=== PATIENT | female | born 1945 | race Caucasian/White ===

== ENCOUNTER 2016-08-02 15:07 | Outpatient (CLI) | payer OTHER ==
[~2016-08-02 15:07] MED LIST: ATENOLOL50 MG PO; BACLOFEN10 MG PO; CELEBREX200 MG; COMPAZINE5 MG; FLOVENT HFA110 MCG IN; FLUOXETINE HCL20 MG PO; LEVAQUIN500 MG PO; METFORMIN HCL500 MG PO; MORPHINE SULFAT15 M2 PO; MS CONTIN15 MG PO; NEURONTIN300 MG PO; OXYCODONE HCL5 MG PO; PAXIL10 MG PO; PERCOCET EQUIVALENT PO; PROAIR HFA IN; WELLBUTRIN SR100 MG PO; ZESTRIL10 MG PO; ZOVIRAX200 MG PO
--- NOTE | 2016-08-02 15:40 | DIAGNOSTIC IMAGING REPORT ---
PROCEDURE: XR CHEST 2 VIEW INDICATION: PRE OP TECHNIQUE: PA and lateral views. COMPARISON: None. FINDINGS: Lungs are clear. Heart and mediastinum are normal. Thorax is normal. IMPRESSION: 1. Negative chest.
[2016-08-09] MEDS ORDERED: NEURONTIN300 MG PO ×2 (15:14)
[2016-08-09] MEDS ORDERED: CELEBREX200 MG PO ×2 (15:16)
== END 2016-08-02 23:00 ==
LOC: RT SRH 15:07
DX: Z01.810 Encounter for preprocedural cardiovascular examination (principal); Z01.811 Encounter for preprocedural respiratory examination; Z01.812 Encounter for preprocedural laboratory examination
CPT/HCPCS: 90004; 90074; 90100; 90148; 90469

== ENCOUNTER 2016-08-14 09:08 | Day surgery (SDC) | payer OTHER ==
--- NOTE | 2016-08-03 07:04 | HISTORY AND PHYSICAL ---
ADMITTED: 08/14/2016 CHIEF COMPLAINT: 1. Mass, left thumb HISTORY OF PRESENT ILLNESS: The patient has had a lump on her left thumb. 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 MEDICAL/SURGICAL HISTORY: Her past history is positive in that she suffers from stress incontinence. She has had some degenerative changes involving multiple joints, including the sacroiliac joints, both shoulders and knees. She had a previous left knee replacement. She suffers from sciatica. She also has diabetes, and she has an anxiety disorder. She has some stress incontinence. Surgical history: Positive in that she has had a bladder sling suspension procedure. She has had previous L5-S1 laminectomy. She has had a neck fusion. She has also had carpal tunnel release surgery, appendectomy , hysterectomy and had a previous spine surgery before the most recent laminectomy ; it does not state exactly what that was. It was back in 2013, and then again she has had a left knee replacement. MEDICATIONS: 1. Natural Tears formulation, which she puts in both eyes daily. 2. She takes morphine as needed for pain. 3. She takes prochlorperazine 10 mg daily. 4. Fluoxetine 40 mg daily. 5. Metformin 500 mg once daily. 6. Albuterol inhaler as needed for shortness of breath. 7. Gabapentin she takes 300 mg, 1-4 capsules at bedtime only. 8. Celebrex 200 mg daily. 9. Buspirone 5 mg twice a day. ALLERGIES: 1. SHE IS NOT ALLERGIC TO ANY MEDICATIONS. SOCIAL HISTORY: Negative for tobacco use, and positive in that she does drink some alcohol, she says on a monthly basis only. FAMILY HISTORY: Her family history is negative for any familial illnesses. REVIEW OF SYSTEMS: Aside from problems with her left shoulder and thumb and back are negative. She denies any loss of consciousness, seizure disorder, chest pain, shortness of breath, cough, congestion, fever, chills, nausea, vomiting, diarrhea or dysuria. PHYSICAL EXAMINATION: VITAL SIGNS: Shows height 63 inches, weight 174, blood pressure 148/80, pulse is 60. HEENT: Head is normocephalic and atraumatic. Her eyes are clear. Her hearing is grossly normal. The teeth are in fair repair. She is missing a number of her teeth, upper and lower. She has a face which is symmetrical. NECK: No jugular venous distention. HEART: Regular rate and rhythm. There is a grade 1-2/6 systolic ejection murmur heard best at the right second intercostal space. LUNGS: Clear to auscultation. ABDOMEN: Soft and mildly obese. EXTREMITIES: In the left thumb, I will refer you to my previous clinic notes, but she does have a soft mass over the dorsum of the left thumb, and there are no overlying skin changes, and she is able to flex and extend the IP joint of the thumb without difficulty and with minimal discomfort. IMPRESSION: 1. Mass of the left thumb PLAN: The plan will be for removal of the same. I explained how we go about doing the procedure, the risk of infection, of recurrence, of continued pain at the thumb. She understands and accepts and would like to proceed with the procedure. We will proceed with the surgery, and it is scheduled for 08/14/2016.
[~2016-08-14 09:08] MED LIST changes: +CELEBREX200 MG PO
--- NOTE | 2016-08-14 12:43 | Provider's Discharge Care Plan ---
Problem, Goal, Plan Problem List 1. Cyst in hand
--- NOTE | 2016-08-14 12:43 | Provider's Discharge Care Plan ---
Problem, Goal, Plan Problem List 1. Cyst in hand
[2016-08-14] MEDS ORDERED: NORCO1 TA1 PO ×2 (12:44)
[2016-08-14] MEDS ORDERED: PRAVASTATIN SOD10 MG PO ×2 (12:45)
--- NOTE | 2016-08-14 14:22 | OPERATIVE REPORT ---
DATE OF SURGERY: 08/14/2016 SURGEON: GRICEL WALTERS MD PREOPERATIVE DIAGNOSIS: 1. Mass of the dorsal aspect of the left thumb POSTOPERATIVE DIAGNOSIS: 1. Mass of the dorsal aspect of the left thumb PROCEDURE PERFORMED: 1. Operation proposed was removal of the mass on the left thumb, and the operation performed is removal of the mass on the left thumb ESTIMATED BLOOD LOSS: Maybe 2 mL at most. COMPLICATIONS: None. PATHOLOGY SPECIMEN: None. SURGICAL TECHNIQUE: The patient was taken to the operating room. She was given some IV sedation. The arm was prepped and draped in the usual sterile fashion, including the hand and fingers and thumb. We then used a small Rochester drain as a tourniquet at the base of the thumb. I had given her some local anesthetic using about 10 mL of 0.5% Marcaine as a block at the level of the metacarpophalangeal joint. I then went on and made a longitudinal incision directly over the mass, carried down through subcutaneous tissue. It was found to be a small ganglion cyst over the dorsal aspect, attached to the extensor tendon of the thumb, just distal to the IP joint. It was resected sharply without difficulty and removed. Then the Rochester drain was removed, and there were a couple superficial bleeders that were coagulated with the Bovie electrocautery. The skin was closed with 3-0 Vicryl subcuticular interrupted simple sutures, and she was dressed with an Adaptic and some fluffs and 4x4s and wrapped with an Rory bandage loosely applied. She was awakened and was taken to the recovery room. She is in stable condition.
== END 2016-08-14 14:40 | disposition home or self-care (01) ==
LOC: OR SRH 09:08
PROVIDERS: Orthopaedic Surgery
PROC: 0LB80ZZ Excision of Left Hand Tendon, Open Approach (ICD-10-PCS; principal; 2016-08-14 11:30)
DX: M67.442 Ganglion, left hand (principal); E11.9 Type 2 diabetes mellitus without complications; Z79.84 Long term (current) use of oral hypoglycemic drugs
CPT/HCPCS: 29229; 50004; 60001; 83291; 84038

== ENCOUNTER 2016-09-05 13:45 | Emergency (ER) | payer OTHER ==
[~2016-09-05 13:45] MED LIST changes: +NORCO1 TA1 PO; +PRAVASTATIN SOD10 MG PO
--- NOTE | 2016-09-05 15:32 | DIAGNOSTIC IMAGING REPORT ---
PROCEDURE: XR CHEST 2 VIEW INDICATION: COUGH TECHNIQUE: PA and lateral views. COMPARISON: None. FINDINGS: Lungs are clear. Heart and mediastinum are normal. Thorax is normal. IMPRESSION: 1. Negative chest.
--- NOTE | 2016-09-05 15:44 | ED ORDER SUMMARY ---
..... Patient: NAIF TOPETE OrderSheet [facility] VisitID: [id number] [place] [address] 71y, F Registration Date/Time: 09/05/2016 ORDER SHEET Weight: 65.7 kg (stated) Allergies: No Known Drug Allergy GENERAL ORDERS: Rapid Influenza Screen (Nasal Pharyngeal) (swab) Urgent (14:03 09/05/2016 Maggy NAVARRO) (Ack 14:04 ARCADIOoeranayeli) (14:18 ASchmuck) CBC w Diff Urgent (14:03 09/05/2016 Maggy NAVARRO) (Ack 14:04 ARCADIOoeisamar) (14:18 ASchmuck) CMP Urgent (14:03 09/05/2016 Maggy NAVARRO) (Ack 14:04 ARCADIOoeisamar) (14:18 ASchmuck) UA-Culture if indicated Urgent (14:03 09/05/2016 Maggy NAVARRO) (Ack 14:04 ARCADIOoeisamar) (15:40 EHassan R.N.) Chest 2V Urgent (14:38 09/05/2016 Maggy NAVARRO) (Ack 14:41 ARCADIOoerner) (15:03 KHoerner) MEDICATION ORDERS: IV FLUIDS: IV NS : initial bolus 1000 mL (1000 mL/hr), then none - (NOW) (14:02 09/05/2016 Maggy NAVARRO) (14:07 ASchmuck) Morphine IV 10 mg (HIGH ALERT MEDICATION, NOW) (14:02 09/05/2016 Maggy NAVARRO) (14:07 ASchmuck) Zofran IV 8 mg (NOW) (14:02 09/05/2016 Maggy NAVARRO) (14:20 EHassan R.N.) ORDER SHEET NOTES: [Electronically signed by June Cornejo R.N. (23:52 09/05/2016)] [Electronically signed by Zara Morley MD (10:08 09/07/2016)] [Electronically locked/signed by June Cornejo R.N. (23:52 09/05/2016)]
--- NOTE | 2016-09-05 15:44 | ED CLINICAL REPORT ---
Clinical Report - Physicians/Mid Levels [facility] [address] [place] [address] 09/05/2016 13:45 Patient: NAIF TOPETE Time Seen: 1344. Arrived- By ambulance. Historian- patient and EMS personnel. HISTORY OF PRESENT ILLNESS Chief Complaint: VOMITING. This started about 3 days ago and is still present. No recent travel. She has had nausea, vomiting and a change in diabetic routine (Pt has not been able to hold down her metformin.). No diarrhea, black stools, bloody stools, abdominal pain or constipation. No flank pain, history of possible bad food exposure or known contact with a sick individual. Has not recently been camping or on antibiotics. The illness is described as moderate. (Pt states she has been shaking uncontrollably since after she started vomiting. She denies fever at home. Pt states that the illness started with a runny nose and cough a couple of days before the vomiting.). Similar symptoms previously: None. Recent medical care: The patient was seen recently at another facility in a clinic. ( PT was seen by Ne Traore at Dr. Moore's office, and sent over from there.). REVIEW OF SYSTEMS No fever, muscle aches, difficulty with urination, dark urine or headache. No dizziness, sore throat, cough, chest pain or difficulty breathing. No excessive urination, skin rash, jaundice, fainting episodes or blurred vision. The patient has had back pain. All systems otherwise negative, except as recorded above. PAST HISTORY Problems: Diabetes Mellitus Type 2. COPD - Chronic Obstructive Pulmonary Disease. Sacroiliitis. Arthritis. Anxiety Reaction. Back Pain. Additional Surgeries: Appendectomy. Back Surgery. Bladder Suspension. Hysterectomy. Knee Prosthesis. Medications: Gabapentin Oral 300 mg, daily. BusPIRone HCl Oral 5 mg, daily. CeleBREX Oral 200 mg, daily. FLUoxetine HCl Oral 40 mg, daily. Prochlorper 10 mg (for nausea). MetFORMIN HCl Oral 500 mg, daily. Ventolin HFA Inhalation. Morphine Sulfate ER Oral 15 mg, as needed. SOCIAL HISTORY Never smoker. No alcohol use or drug use. ADDITIONAL NOTES The nursing notes have been reviewed. PHYSICAL EXAM Vital Signs: 09/05/2016 13:57 BP: 148/106. HR: 88. RR: 18. O2 saturation: 100%. Temp: 98.6 F. Pain level now: 04/16. Appearance: Alert. Oriented X3. Patient in mild distress. Distress appears due to anxiety. (Pt has notable rigors, and is irritable.). Eyes: Pupils equal, round and reactive to light. Eyes normal inspection. ENT: Nose normal. Neck: Normal inspection. CVS: Normal heart rate and rhythm. Heart sounds normal. Pulses normal. Respiratory: No respiratory distress. Breath sounds normal. Abdomen: Soft and nontender. Back: Normal inspection. No CVA tenderness. Skin: Skin warm and dry. Normal skin color. No rash. Normal skin turgor. Extremities: Extremities exhibit normal ROM. No lower extremity edema. Neuro: Oriented X 3. No motor deficit. No sensory deficit. LABS, X-RAYS, AND EKG Laboratory Tests: CBC w Diff: (BEBETO: 09/05/2016 13:56) ( MsgRcvd 09/05/2016 14:41) Final results Test Result Flag Units (Reference) WHITE BLOOD COUNT 10.8 K/uL (4.5-11.5) RED BLOOD COUNT 5.82 H M/uL (4.00-5.20) HEMOGLOBIN 16.9 H gm/dL (12.0-16.0) HEMATOCRIT 50.9 H % (36.0-46.0) MEAN CELL VOLUME 87 fL (80-100) MEAN CORPUSCULAR HGB 29 pg (26-34) MEAN CORPUSCULAR HGB CONC 33 g/dL (31-37) RED CELL DISTRIBUTION WIDTH 16.2 H % (11.6-14.8) PLATELET COUNT 200 K/uL (150-400) NEUTROPHIL % 78.2 H % (50-75) LYMPH % 12.8 L % (25-40) MONO % 8.6 % (3-14) EOSINOPHIL % 0.1 % (0-4) BASOPHIL % 0.3 % (0-2) CMP: (BEBETO: 09/05/2016 13:56) ( MsgRcvd 09/05/2016 14:51) Final results Test Result Flag Units (Reference) GLUCOSE 108 mg/dL (70-110) BUN 14 mg/dL (7-18) CREATININE 1.1 mg/dL (0.6-1.3) Estimated GFR 52.19 mL/min Estimated GFR- >60 mL/min Note: Persistent reduction over 3 months in eGFR<60 mL/min/1.73 m2 defines CKD. Patients with eGFR values>=60 mL/min/1.73 m2 may also have CKD if evidence ofpersistent proteinuria. Additional information may be foundat www.[email or web address].org. SODIUM 140 mmol/L (136-145) POTASSIUM 4.1 mmol/L (3.5-5.1) CHLORIDE 102 mmol/L (98-107) CARBON DIOXIDE 26 mmol/L (21-32) CALCIUM 10.2 H mg/dL (8.5-10.1) TOTAL PROTEIN 8.8 H g/dL (6.4-8.2) ALBUMIN 4.1 g/dL (3.3-5.0) BILIRUBIN, TOTAL 0.8 mg/dL (0.0-1.0) ALKALINE PHOSPHATASE 79 U/L (46-116) AST (SGOT) 29 U/L (15-37) ALT (SGPT) 39 U/L (12-78) Rapid Influenza Screen: (BEBETO: 09/05/2016 14:14) ( MsgRcvd 09/05/2016 14:37) Final results SPECIMEN DESCRIPTION: SWAB Test Result Flag Units (Reference) RAPID INFLUENZA SCREEN DATE: 09/05/16 INFLUENZA A: NEGATIVE SCREEN FOR INFLUENZA A INFLUENZA B: NEGATIVE SCREEN FOR INFLUENZA B . Pulse Oximetry: 09/05/2016 13:57 O2 saturation: 100%. (FIO2 - room air). Interpretation: normal. PROGRESS AND PROCEDURES Course of Care: Pt appeared uncomfortable, but was hemodynamically stable. I did suspect opiate withdrawal, given that pt has not been able to hold any of her meds down for the past 3 days, and is on chronic oral morphine. Pt was worked up and given IV morphine, which resolved her sx completely. She was also given IV fluids and Zofran. Work-up was negative. No emergent condition identified. Patient counseled in person regarding the patient's stable condition, test results, diagnosis and need for follow-up. Concerns were addressed. Old medical records reviewed. Disposition: Discharged. Condition: stable and improved. CLINICAL IMPRESSION Acute viral syndrome Narcotic withdrawal INSTRUCTIONS Drink plenty of fluids. (Your labs look good, and no serious infection has been found. 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 You have been given a dose of morphine today to stop this reaction. Please get back on all of your medications today, and take Zofran for any further nausea.). Warnings: SEDATIVE MEDICATION: You were given sedative medication during your visit. Do not drive or operate dangerous machinery for 6 hours. GENERAL WARNINGS: Return or contact your physician immediately if your condition worsens or changes unexpectedly, if not improving as expected, or if other problems arise. Your Current Medications: CONTINUE TAKING THE FOLLOWING MEDICATIONS: BusPIRone HCl Oral : 5 mg daily. CeleBREX Oral : 200 mg daily. FLUoxetine HCl Oral : 40 mg daily. Gabapentin Oral : 300 mg daily. MetFORMIN HCl Oral : 500 mg daily. Morphine Sulfate ER Oral : 15 mg, prn. Prochlorper* : 10 mg, for nausea. Ventolin HFA Inhalation. Prescription Medications: Zofran (orally disintegrating tablets) 4 mg: take 1-2 orally every 6 hours as needed for nausea. Dispense fifteen (15). No refill. Substitution is permissible. Follow-up: Follow up with your doctor in five days if not better. Understanding of the discharge instructions verbalized by patient. (Electronically signed by Zara Morley MD 09/07/2016 10:08)
--- NOTE | 2016-09-05 15:44 | ED NURSING NOTES ---
Clinical Report - Nurses [facility] [address] [place] [address] 09/05/2016 13:45 Patient: NAIF TOPETE TRIAGE Triage time 1358 PM. Acuity: LEVEL 3. Chief Complaint: ABDOMINAL PAIN, NAUSEA, VOMITING and DIARRHEA and FEVER, CHILLS and ACHES. Alert. No acute distress. SEPSIS SCREEN: Sepsis Screen. Negative (no infection suspected/documented). ASAEL COMA SCORE: Asael Coma Scale: 15- eyes open spontaneously (4); best verbal response- oriented x 4 (5); best motor response- obeys commands (6). --14:36 June Cornejo R.N. 13:57 09/05/16. BP: 148/106. HR: 88. RR: 18. O2 saturation: 100% on room air. Temp: 98.6 F (oral). Pain level now: 04/16. --14:36 June Cornejo R.N. Weight: 65.7 kg stated. Height/Length: 62 inches Per Patient. BMI: 26.5. --14:01 June Cornejo R.N. Medications Morphine Sulfate ER Oral 15 mg, as needed. --14:26 June Cornejo R.N. Ventolin HFA Inhalation. --14:26 June Cornejo R.N. MetFORMIN HCl Oral 500 mg, daily. --14:27 June Cornejo R.N. Prochlorper 10 mg (for nausea). --14:29 June Cornejo R.N. FLUoxetine HCl Oral 40 mg, daily. --14:30 June Cornejo R.N. CeleBREX Oral 200 mg, daily. --14:31 June Cornejo R.N. BusPIRone HCl Oral 5 mg, daily. --14:31 June Cornejo R.N. Gabapentin Oral 300 mg, daily. --14:32 June Cornejo R.N. Allergies No Known Drug Allergy. --23:52 June Cornejo R.N. Medication/allergy information source: the patient and patient's imported external medical record. --14:36 June Cornejo R.N. History Arrived by EMS. Historian: patient. Primary physician called the ED prior to patient's arrival (Dr. Ne Traore). ( Pt arrived via EMS from Dr. rebollar, pt had gone there due to not feeling well for the past 3 days, with chills, fevers, cold sweats, cough non productive, vomiting and diarrhea.). Onset. (3). She has had fever, nausea, vomiting, diarrhea and abdominal pain. No constipation. Last oral intake by patient was liquid. Treatment BOTTLE CAPPER: None. EMS report reviewed. See report. PAST MEDICAL HX: Immunizations: up-to-date. The patient has had a hysterectomy. 2. Para 2. No contraception. SOCIAL HX: Never smoker. No alcohol use or drug use. No recent travel. No infectious disease exposure. No known contact with a sick individual. ABUSE ASSESSMENT: No report of abuse. SELF HARM ASSESSMENT: A self harm assessment was performed. The patient answered "no" to the question "Do you have thoughts of harming or killing yourself?" and "Have you recently had thoughts about harming or killing others?". FALL RISK ASSESSMENT: Fall risk assessment completed. No fall risk identified. NUTRITIONAL RISK ASSESSMENT: The nutritional risk assessment revealed no deficiencies. FUNCTIONAL ASSESSMENT: Functional assessment: no impairments noted. LEARNING NEEDS ASSESSMENT: The learning needs assessment revealed no barriers. SKIN INTEGRITY ASSESSMENT: Skin integrity risk assessment completed. No skin integrity risk identified. --14:36 June Cornejo R.N. PROBLEMS: Diabetes Mellitus Type 2. COPD - Chronic Obstructive Pulmonary Disease. Sacroiliitis. Arthritis. Anxiety Reaction. Back Pain. --14:12 June Cornejo R.N. ADDITIONAL SURGERIES: Appendectomy. Back Surgery. Bladder Suspension. Hysterectomy. Knee Prosthesis. --14:12 June Cornejo R.N. Interventions ID band on patient. --14:36 June Cornejo R.N. PHYSICAL ASSESSMENT To room via stretcher. GENERAL / NEURO / PSYCH: Alert. Oriented X 4. Appears in no acute distress. Appears in pain, anxious and in distress. HEENT: Mucous membranes are pink. RESPIRATORY: Respirations not labored. CVS: Normal sinus rhythm noted. Cardiac rhythm: normal sinus rhythm. No abnormal heart sounds. Pulses: right radial 4+, left radial 4+, right dorsalis pedis 4+, left dorsalis pedis 4+, right posterior tibial 4+ and left posterior tibial 4+. Capillary refill less than 2 seconds and is greater than 2 seconds. GI / : The patient has diarrhea. No urethral discharge or vaginal discharge. SKIN: Skin is pale. Skin is warm and dry. --14:18 June Cornejo R.N. NURSING PROGRESS NOTES 13:51 09/05/2016 Site #1 started via IV in the right antecubital space with an 20g angiocath, with aseptic technique and good blood return; one attempt. Blood drawn: rainbow set. Labeled in the presence of the patient and sent to the lab. Saline lock flushed with 10 mL saline. --14:06 Asia Meek 13:57 09/05/2016 Started bag #1 1000 mL IV Fluids IV NS (Saline); at 1000 mL/hr over 1 hour(s) via site #1 via IV pump. Allergies verified and confirmed 5 rights. IV patency established. IV site checked: no pain, redness, or swelling. IV flushed thoroughly pre- and post-medication administration. --14:07 Asia Meek 14:04 09/05/2016 Morphine IVP 5 mg given over 30 second(s) via site #1. Allergies verified, confirmed 5 rights and sedative warning given to the patient. IV patency established. IV site checked: no pain, redness, or swelling. IV flushed thoroughly pre- and post-medication administration. IVP given by RN (Verbal order from ERMD to divide doses). --14:07 Asia Meek Cardiac rhythm: normal sinus rhythm. The initial plan of care for this patient has been created This plan of care was discussed with the patient. mophead trimmer and wrapper, pulse oximeter and NIBP monitor placed on patient. Patient gowned. Head of bed elevated 15 degrees. Warming measures: blanket applied. Reassurance given. Reassessment after fluids administered and medication administered. She has had no adverse reaction. GI / : The patient reports nausea. The patient reports abdominal pain. Denies diarrhea or vomiting. Abdominal tenderness in the right lower quadrant, left lower quadrant and lower abdomen. Guarding present. SKIN: Skin is warm and dry. Two patient identifiers checked. Call light placed in reach. Side rails up. Bed placed in lowest position. Brakes of bed on. FALL RISK ASSESSMENT: Fall risk assessment completed. No fall risk identified. --14:20 June Cornejo R.N. 14:15 09/05/16. BP: 156/90. HR: 88. RR: 12 (regular and unlabored). O2 saturation: 96% on room air. Pain level now: 01/14. --14:20 June Cornejo R.N. 14:10 09/05/2016 Zofran (Ondansetron HCl) IVP 8 mg given over 4 minute(s) via site #1. Allergies verified and confirmed 5 rights. IV patency established. IV site checked: no pain, redness, or swelling. IV flushed thoroughly pre- and post-medication administration. IVP given by RN. --14:20 June Cornejo R.N. 14:30 09/05/2016 Morphine IVP Response: no adverse reaction pain is improving. Symptoms have improved. --15:13 June Cornejo R.N. 14:48 09/05/2016 Zofran IVP Response: symptoms have improved the patient feels better. --15:13 June Cornejo R.N. 15:40 09/05/2016 IV Fluids IV NS Discontinued: bag #1 completed. Total amount infused: 1000 mL. IV patency established. IV site checked: no pain, redness, or swelling. IV flushed thoroughly. --15:40 June Cornejo R.N. Pulse oximeter and NIBP monitor placed on patient. Reassurance given. Reassessment after fluids administered. She is calm and resting quietly and has had no adverse reaction. Overall patient status is improved- she states feels better. Call light placed in reach. --16:00 June Cornejo R.N. 15:00 09/05/16. BP: 144/67 (regular adult cuff) taken on the left arm, via an automated monitor, while lying. HR: 86. RR: 14. O2 saturation: 96% on room air. Temp: 98.5 F (oral). Pain level now: 0/10. --16:00 June Cornejo R.N. DISPOSITION / DISCHARGE 16:00 09/05/2016 Site #1 removed upon discharge. Catheter intact. Manual pressure and bandaid applied. --23:49 June Cornejo R.N. late entry - 16:00. Departure time: 1608 PM. Cardiac rhythm: normal sinus rhythm. Condition at departure: improved and stable. The goals identified in the patient's plan of care were met. No learning barriers present. Discharge instructions provided and reviewed with the patient and family. Reviewed medication(s) side effects, precautions, dosing and course information. Prescription(s) given to the patient. Reviewed need for increased fluid intake. Activity restrictions (rest) reviewed. Patient and family verbalized understanding. Written instructions provided in Greenlandic. ( All concerns addressed to pt's satisfaction. Verbalizes understanding of D/C instructions). No treatment instructions or referrals given to the patient. The patient was discharged by the nurse practitioner. She was discharged home and accompanied by family. She left the Emergency Department ambulatory and via private vehicle. Family member driving. FALL RISK ASSESSMENT: Fall risk assessment completed. No fall risk identified. --23:51 June Cornejo R.N. 16:00 09/05/16. BP: 163/93 (regular adult cuff) taken on the left arm, via an automated monitor, while sitting. HR: 96 (regular and normal rate). RR: 16 (regular, unlabored and normal). O2 saturation: 100% on room air. Temp: 98.9 F (oral). Pain level now: 210. --23:51 June Cornejo R.N. Locked/Released at 09/05/2016 23:52 by June Cornejo R.N.
--- NOTE | 2016-09-05 15:44 | ED ORDER SUMMARY ---
..... Patient: NAIF TOPETE OrderSheet [facility] VisitID: [id number] [place] [address] 71y, F Registration Date/Time: 09/05/2016 ORDER SHEET Weight: 65.7 kg (stated) Allergies: No Known Drug Allergy GENERAL ORDERS: Rapid Influenza Screen (Nasal Pharyngeal) (swab) Urgent (14:03 09/05/2016 Maggy NAVARRO) (Ack 14:04 ARCADIOoeranayeli) (14:18 ASchmuck) CBC w Diff Urgent (14:03 09/05/2016 Maggy NAVARRO) (Ack 14:04 ARCADIOoeisamar) (14:18 ASchmuck) CMP Urgent (14:03 09/05/2016 Maggy NAVARRO) (Ack 14:04 ARCADIOoeisamar) (14:18 ASchmuck) UA-Culture if indicated Urgent (14:03 09/05/2016 Maggy NAVARRO) (Ack 14:04 ARCADIOoeisamar) (15:40 EHassan R.N.) Chest 2V Urgent (14:38 09/05/2016 Maggy NAVARRO) (Ack 14:41 ARCADIOoerner) (15:03 KHoerner) MEDICATION ORDERS: IV FLUIDS: IV NS : initial bolus 1000 mL (1000 mL/hr), then none - (NOW) (14:02 09/05/2016 Maggy NAVARRO) (14:07 ASchmuck) Morphine IV 10 mg (HIGH ALERT MEDICATION, NOW) (14:02 09/05/2016 Maggy NAVARRO) (14:07 ASchmuck) Zofran IV 8 mg (NOW) (14:02 09/05/2016 Maggy NAVARRO) (14:20 EHassan R.N.) ORDER SHEET NOTES: [Electronically signed by June Cornejo R.N. (23:52 09/05/2016)] [Electronically signed by Zara Morley MD (10:08 09/07/2016)] [Electronically locked/signed by June Cornejo R.N. (23:52 09/05/2016)]
--- NOTE | 2016-09-07 10:08 | ED MAR SUMMARY ---
..... Medication Administration Record [facility] [address] [place] [address] Patient: NAIF TOPETE Visit ID: [id number] 71y, F Weight: 65.7 kg Height/Length: 62 in BMI: 26.5 ALLERGIES: No Known Drug Allergy Start 13:57 09/05/2016 Asia Meek,, Stop 15:40 09/05/2016 June Cornejo REvelinNEvelin Medication Administered: IV NS (SALINE), Dose: IV Fluids over 1 hour(s), Rate: 1000 mL/hr, Dispensed: 1000 mL bag, Site: #1 right AC. Medication Ordered: IV NS : initial bolus 1000 mL (1000 mL/hr), then none - (NOW). Given 14:04 09/05/2016 Asia Meek, Medication Administered: MORPHINE [IVP], Dose: 5 mg IVP over 30 second(s), Site: #1 right AC. Medication Ordered: Morphine IV 10 mg (HIGH ALERT MEDICATION, NOW). Given 14:10 09/05/2016 June Cornejo, REvelinN. Medication Administered: ZOFRAN [IVP] (ONDANSETRON HCL), Dose: 8 mg IVP over 4 minute(s), Site: #1 right AC. Medication Ordered: Zofran IV 8 mg (NOW).
--- NOTE | 2016-09-07 10:08 | ED MED RECONCILIATION SUMMARY ---
Patient: NAIF TOPETE Medication Reconciliation Report [facility] VisitID: [id number] [address] [place] [address] 71y, F Registration Date/Time: 09/05/2016 Weight: 65.7 kg Height/Length: 62 in. BMI: 26.5 ALLERGIES: No Known Drug Allergy The patient's Home Medications are listed below: CONTINUE TAKING THE FOLLOWING MEDICATIONS: BusPIRone HCl Oral 5 mg, daily CeleBREX Oral 200 mg, daily FLUoxetine HCl Oral 40 mg, daily Gabapentin Oral 300 mg, daily MetFORMIN HCl Oral 500 mg, daily Morphine Sulfate ER Oral 15 mg Prochlorper 10 mg, for nausea Ventolin HFA Inhalation The source(s) of the original Home Medication information: patient patient's imported external medical record The following Medications were given to the patient in the Emergency Department: IV NS IV Fluids bolus 0, then 1000 mL/hr, administered: 09/05/2016 1:57:00 PM Morphine [IVP] IVP 5 mg, administered: 09/05/2016 2:04:00 PM Zofran [IVP] IVP 8 mg, administered: 09/05/2016 2:10:00 PM The following Medications were prescribed to the patient: Zofran (orally disintegrating tablets) 4 mg: take 1-2 orally every 6 hours as needed for nausea. Dispense fifteen (15). No refill. Substitution is permissible. -- Zara Morley MD
--- NOTE | 2016-09-07 10:08 | ED MAR SUMMARY ---
..... Medication Administration Record [facility] [address] [address] Patient: NAIF TOPETE Visit ID: [id number] 71y, F Weight: 65.7 kg Height/Length: 62 in BMI: 26.5 ALLERGIES: No Known Drug Allergy Start 13:57 09/05/2016 Asia Meek,, Stop 15:40 09/05/2016 June Cornejo REvelinNEvelin Medication Administered: IV NS (SALINE), Dose: IV Fluids over 1 hour(s), Rate: 1000 mL/hr, Dispensed: 1000 mL bag, Site: #1 right AC. Medication Ordered: IV NS : initial bolus 1000 mL (1000 mL/hr), then none - (NOW). Given 14:04 09/05/2016 Asia Meek, Medication Administered: MORPHINE [IVP], Dose: 5 mg IVP over 30 second(s), Site: #1 right AC. Medication Ordered: Morphine IV 10 mg (HIGH ALERT MEDICATION, NOW). Given 14:10 09/05/2016 June Cornejo, REvelinN. Medication Administered: ZOFRAN [IVP] (ONDANSETRON HCL), Dose: 8 mg IVP over 4 minute(s), Site: #1 right AC. Medication Ordered: Zofran IV 8 mg (NOW).
--- NOTE | 2016-09-07 10:08 | ED DISCHARGE INSTRUCTIONS ---
Patient: NAIF TOPETE General Instructions [facility] VisitID: [id number] [place] [address] 71y, F Registration Date/Time: 09/05/2016 Acute viral syndrome Narcotic withdrawal INSTRUCTIONS Drink plenty of fluids. (Your labs look good, and no serious infection has been found. 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 You have been given a dose of morphine today to stop this reaction. Please get back on all of your medications today, and take Zofran for any further nausea.). Warnings: SEDATIVE MEDICATION: You were given sedative medication during your visit. Do not drive or operate dangerous machinery for 6 hours. GENERAL WARNINGS: Return or contact your physician immediately if your condition worsens or changes unexpectedly, if not improving as expected, or if other problems arise. Your Current Medications: CONTINUE TAKING THE FOLLOWING MEDICATIONS: BusPIRone HCl Oral : 5 mg daily. CeleBREX Oral : 200 mg daily. FLUoxetine HCl Oral : 40 mg daily. Gabapentin Oral : 300 mg daily. MetFORMIN HCl Oral : 500 mg daily. Morphine Sulfate ER Oral : 15 mg, prn. Prochlorper* : 10 mg, for nausea. Ventolin HFA Inhalation. Prescription Medications: Zofran (orally disintegrating tablets) 4 mg: take 1-2 orally every 6 hours as needed for nausea. Dispense fifteen (15). No refill. Substitution is permissible. Follow-up: Follow up with your doctor in five days if not better. Understanding of the discharge instructions verbalized by patient. ADDITIONAL INFORMATION Viral Syndrome (Adult) A viral illness may cause a number of symptoms. The symptoms depend on the part of the body that the virus affects. If it settles in the nose, throat, and lungs, it may cause cough, sore throat, congestion, and sometimes headache. If it settles in the stomach and intestinal tract, it may cause vomiting and diarrhea. Sometimes it causes vague symptoms like "aching all over," feeling tired, loss of appetite, or fever. A viral illness usually lasts1 to 2 weeks, but sometimes it lasts longer. In some cases, a more serious infection can look like a viral syndrome in the first few days of the illness. You may need anotherexam and additional teststo know the difference.Watch for the warning signs listed below. Home care Follow these guidelines for taking care of yourself at home: If symptoms are severe, rest at home for the first 2 to 3 days. Stay away from cigarette smoke - both your smoke and the smoke from others. You may useacetaminophen or ibuprofen for fever, muscle aching, and headache, unless another medicine was prescribed for this.If you have chronic liver or kidney disease or ever had a stomach ulcer or GI bleeding, talk with your doctor before using these medicinesNo one who is younger than 18 and ill with a fever should take aspirin. It may cause severe liver damage. Your appetite may be poor, so a light diet is fine. Avoid dehydration by drinking 8 to 12 8-ounce glasses of fluids each day. This may include water; orange juice; lemonade; apple, grape, and cranberry juice; clear fruit drinks; electrolyte replacement and sports drinks; and decaffeinated teas and coffee. If you have been diagnosed with a kidney disease, ask your doctor how much and what types of fluids you should drink to prevent dehydration. If you have kidney disease, drinking too much fluid can cause it build up in the your body and be dangerous to your health. Nhrs-yqd-pkaiiag remedies won't shorten the length of the illness but may be helpful forcough, sore throat; and nasal and sinus congestion. Don't use decongestants if you have high blood pressure. Follow-up care Follow up with your health care provider if you do not improve over the next week. When to seek medical care Get prompt medical attention if any of these occur: Cough with lots of colored sputum (mucus) or blood in your sputum Chest pain, shortness of breath, wheezing, or difficulty breathing Severe headache; face, neck, or ear pain Severe, constant pain in the lower right side of your belly (abdominal) Continued vomiting (cant keep liquids down) Frequent diarrhea (more than 5 times a day); blood (red or black color) or mucus in diarrhea Feeling weak, dizzy, or like you are going to faint Extreme thirst Fever of 100.4 F (38 C) oral or higher, not better with fever medication Convulsion You have been given the following additional information: Viral Syndrome (Adult) (Electronically signed by Zara Morley MD 09/07/2016 10:08)
--- NOTE | 2016-09-07 10:08 | ED MED RECONCILIATION SUMMARY ---
Patient: NAIF TOPETE Medication Reconciliation Report [facility] VisitID: [id number] [address] [place] [address] 71y, F Registration Date/Time: 09/05/2016 Weight: 65.7 kg Height/Length: 62 in. BMI: 26.5 ALLERGIES: No Known Drug Allergy The patient's Home Medications are listed below: CONTINUE TAKING THE FOLLOWING MEDICATIONS: BusPIRone HCl Oral 5 mg, daily CeleBREX Oral 200 mg, daily FLUoxetine HCl Oral 40 mg, daily Gabapentin Oral 300 mg, daily MetFORMIN HCl Oral 500 mg, daily Morphine Sulfate ER Oral 15 mg Prochlorper 10 mg, for nausea Ventolin HFA Inhalation The source(s) of the original Home Medication information: patient patient's imported external medical record The following Medications were given to the patient in the Emergency Department: IV NS IV Fluids bolus 0, then 1000 mL/hr, administered: 09/05/2016 1:57:00 PM Morphine [IVP] IVP 5 mg, administered: 09/05/2016 2:04:00 PM Zofran [IVP] IVP 8 mg, administered: 09/05/2016 2:10:00 PM The following Medications were prescribed to the patient: Zofran (orally disintegrating tablets) 4 mg: take 1-2 orally every 6 hours as needed for nausea. Dispense fifteen (15). No refill. Substitution is permissible. -- Zara Morley MD
== END 2016-09-05 16:08 | disposition home or self-care (01) ==
LOC: ED SRH 13:45
DX: B34.9 Viral infection, unspecified (principal); N39.0 Urinary tract infection, site not specified; F11.23 Opioid dependence with withdrawal; E11.9 Type 2 diabetes mellitus without complications; Z79.1 Long term (current) use of non-steroidal anti-inflammatories (NSAID); Z79.899 Other long term (current) drug therapy; Z79.84 Long term (current) use of oral hypoglycemic drugs
CPT/HCPCS: 90004; 90070; 90100; 90469; 91400; 95059